=== PATIENT | female | born 1955 | race Caucasian/White ===

== ENCOUNTER 2016-08-23 21:58 | Inpatient (IN) | payer OTHER ==
[~2016-08-23] VITALS: Ht 167.6 cm; Wt 90.7 kg
[2016-08-23] MEDS ORDERED: NACL 0.9% 1,000 ML IV ONE (22:00)
--- NOTE | 2016-08-23 22:00 | NUR ---
PT PAYTON ALS. TAKEN TO BED 3
--- NOTE | 2016-08-23 22:00 | NUR ---
61Y F BIBA FROM HOME C/O SOB AND ALOC. EMS STATES DAUGHTER SAID MOM COULD ONLY RECALL HER NAME AT 2130 SO CALLED EMS, DAUGHTER STATES MOM WAS AA04 THIS MORNING. PT HAS HX CHF, HTN, COPD, AND IS A SMOKER. 20G IN THE LEFT HAND ESTABLISHED BY EMS ON THE FIELD; BS 245; EMS GAVE 5 ROUNDS OF ALBUTEROL AND 0.5 OF ATROVENT ONROUTE. PT STATES DENIES N/V/D; SKIN IS PINK/WARM/DRY WITH EDEMA BILAT LEGS; HR IS TACHY 119 AT THE MOMENT. PT DENIES ANY FEVER, CP, OR COUGH AT THIS TIME; PATIENT STATES PAIN OF 0/10 AT THIS TIME; VSS; PATIENT POSITIONED FOR COMFORT; HOB ELEVATED; BEDRAILS UP X2; BED DOWN. ER MD MADE AWARE OF PT STATUS.
--- NOTE | 2016-08-23 22:04 | NUR ---
Dr. Mckenzie evaluating patient at bedside.
[2016-08-23] MEDS ORDERED: NITROGLYCERIN 2% 1 GM PKT TP ONE (22:10)
[2016-08-23] MEDS ORDERED: methylPREDNISolone SS 125 MG in WATER STERILE 2 ML IV ONE (22:10)
[2016-08-23] MEDS ORDERED: ALBUTEROL SULFATE/IPRATROPIU 3 ML SOL IH ONE (22:10)
[2016-08-23] MEDS ORDERED: FUROSEMIDE 40 MG/4 ML VIAL IVP ONE (22:10)
[2016-08-23 22:11] VITALS: BP 126/70
--- NOTE | 2016-08-23 22:22 | NUR ---
Respiratory Therapist at bedside for respiratory intervention.
[2016-08-23 22:30] LABS: BASOPHILS # (AUTO) 0.1 K/uL (0.00-0.22); BASOPHILS % (AUTO) 1.8 % (0.0-2.0); EOSINOPHILS # (AUTO) 0.1 K/uL (0-0.4); EOSINOPHILS % (AUTO) 2.3 % (0.0-4.0); HEMATOCRIT 46.7 % (36-48); LYMPHOCYTES # (AUTO) 0.8 K/uL (2.5-16.5); LYMPHOCYTES % (AUTO) 14.8 % (20.5-51.1); MEAN CORPUSCULAR HEMOGLOBIN 26 pg (27-31); MEAN CORPUSCULAR HGB CONC 30 g/dL (33-37); MEAN CORPUSCULAR VOLUME 86 fL (80-94); MONOCYTES # (AUTO) 0.5 K/uL (0.8-1.0); MONOCYTES % (AUTO) 9.9 % (1.7-9.3); NEUTROPHILS # (AUTO) 3.9 K/uL (1.8-7.7); NEUTROPHILS % (AUTO) 71.2 % (42.2-75.2); PLATELET COUNT (AUTO) 174 K/uL (140-450); RED BLOOD CELL COUNT(AUTO) 5.42 MIL/uL (4.20-5.40); WHITE BLOOD COUNT (AUTO) 5.5 K/uL (4.8-10.8)
[2016-08-23 22:47] LABS: ANION GAP 7.1 (8-16); CALCIUM 8.6 mg/dL (8.5-10.1); POTASSIUM 4.1 mmol/L (3.5-5.1)
[2016-08-23 22:52] LABS: ALBUMIN 3.1 g/dL (3.4-5.0); INR 1.2 (0.8-1.2); PARTIAL THROMBOPLASTIN TIME 27.1 secs (22-35.6); PROTHROMBIN TIME 11.9 secs (10.8-13.4); TOTAL BILIRUBIN 0.3 mg/dL (0.0-1.0); TOTAL PROTEIN, SERUM 6.6 g/dL (6.4-8.2)
[2016-08-23 22:55] LABS: LACTIC ACID 1.1 mmol/L (0.4-2.0)
--- NOTE | 2016-08-23 22:56 | NUR ---
X-Ray at bedside.
[2016-08-23] MEDS ORDERED: hydrALAZINE 20 MG/ML VIAL IVP ONE (23:05)
--- NOTE | 2016-08-23 23:21 | NUR ---
PLACE PT ON BIPAP PER DR BARRETO, 01/01, B/UP RATE 14, FIO2 40% , PT TOLERATING WELL. PT IS ALOC AND HAVE TO BE REMINDED PT NOT TO REMOVE MASK.
--- NOTE | 2016-08-24 00:10 | NUR ---
Pt report given to LENA COOPER . Transfer of care at this time.
--- NOTE | 2016-08-24 00:10 | NUR ---
Patient will be admitted to care of DR DUMONT. Admited to TELE 107B. Will go to room 107B . Belongings list completed. Report to LENA COOPER .
[2016-08-24 00:17] LABS: BILIRUBIN,URINE NEGATIVE (NEGATIVE); BLOOD, URINE TRACE-L (NEGATIVE); LEUKOCYTE ESTERASE ,URINE NEGATIVE (NEGATIVE); NITRITE, URINE NEGATIVE (NEGATIVE); PH,URINE 5.5 (5.0-9.0); PROTEIN,URINE NEGATIVE (NEGATIVE); UGLUCOSE NEGATIVE (NEGATIVE); UROBILINOGEN,URINE 0.2 EU/dL (0.2 - 1)
[2016-08-24 00:27] LABS: APPEARANCE,URINE CLEAR (CLEAR); COLOR,URINE STRAW (YELLOW)
[2016-08-24 00:29] LABS: BACTERIA,URINE OCCASSIONAL /HPF (None Seen); RBC,URINE 3-10 (FEW) /HPF (0-5); SQUAMOUS EPITHELIAL CELL,UR 4-10 (MOD) /LPF (0-3 (FEW)); WBC,URINE 0-5 (RARE) /HPF (0-5)
[2016-08-24 00:35] LABS: AMPHETAMINE, URINE NEG. ng/ml (NEG <=1000); BARBITURATE, URINE NEG. ng/ml (NEG <=200); BENZODIAZEPINE, URINE NEG. ng/mL (NEG <=200); CANNABINOID, URINE NEG. ng/mL (NEG <=50); COCAINE, URINE NEG. ng/mL (NEG <=300); OPIATE, URINE NEG. ng/mL (NEG <=2000); PHENCYCLIDINE SCREEN,URINE NEG. ng/mL (NEG <=25)
--- NOTE | 2016-08-24 00:35 | NUR ---
RESPIRATORY CALLED FROM ED, APPLIED NON REBREATHER MASK ON PATIENT AND PATIENT SATING AT 99-100%, ASKED IF I COULD CALL MD TO ASK IF IT WAS OKAY TO TAKE PATIENT OFF BIPAP AND APPLY NONREBREATHER BEFORE TRANSFERRING TO UNIT. CALLED DR DUMONT, HE STATED THAT WAS OKAY AND CONTINUE TO DO WHAT THE PATIENT NEEDS. WILL AWAIT FOR PATIENT TO ARRIVE TO UNIT
[2016-08-24 01:30] VITALS: BP 112/84
--- NOTE | 2016-08-24 01:30 | NUR ---
PATIENT ARRIVED TO UNIT FROM ED VIA GURNEY ACCOMPANIED BY DAUGHTER AT BEDSIDE, PATIENT IS LETHARGIC AND ABLE TO RESPOND TO QUESTIONS NODDING HEAD YES OR NO. PATIENT IS ON NON REBREATHER MASK, RESPIRATIONS LABORED, O2 SATS AT 99%, LUNGS AUSCULTATED, WHEEZING PRESENT, IV TO LEFT HAND PATENT AND INTACT, SKIN IS INTACT WITH OLD SCARS TO LEFT FOOT FROM HISTORY OF SURGERY. BILATERAL LOWER EXTREMITY EDEMA NOTED, NON PITTING WITH REDNESS AND DRY SKIN. SKIN FEELS COOL TO THE TOUCH. PATIENT ARRIVED TO UNIT WITH BED SHEETS SATURATED OF URINE, PATIENT IS INCONTINENT AND ACKNOWLEDGED IT IS NOW ONSET. DISCUSSED PATIENTS PLAN OF CARE WITH DAUGHTER, DAUGHTER VERBALIZED UNDERSTANDING. PATIENT CONNECTED TO TELE MONITOR, SAFETY MEASURES CHECKED, CALL LIGHT WITHIN REACH, WILL CONTINUE TO CLOSELY MONITOR. VITAL SIGNS STABLE.
[2016-08-24] MEDS ORDERED: ONDANSETRON 4 MG/2 ML VIAL IVP PRN (01:40)
[2016-08-24] MEDS ORDERED: ACETAMINOPHEN 325 MG TAB PO PRN (01:40)
[2016-08-24] MEDS ORDERED: ALBUTEROL SULFATE/IPRATROPIU 3 ML SOL IH PRN (01:40)
[2016-08-24] MEDS: NACL 0.9% 1,000 ML IV SCH ×2 (02:19→22:59)
[2016-08-24 03:11] LABS: CHOL/HDL RATIO 3.4 (1-4.5)
[2016-08-24 03:18] LABS: FREE T4 (FREE THYROXINE) 1.08 ng/dL (0.76-1.46); THYROID STIMULATING HORMONE 0.87 uIU/mL (0.34-3.76)
[2016-08-24] MEDS: LEVOFLOXACIN 500 MG/D5W PREMIX 100 ML IV SCH (03:33)
[2016-08-24 04:00] VITALS: BP 135/60
--- NOTE | 2016-08-24 04:23 | NUR ---
VITAL SIGNS STABLE, PATIENT WOKE UP WHEN I TOOK VITALS, PATIENT ABLE TO NOD HEAD YES OR NO TO QUESTIONS. PATIENT ACKNOWLEDGED SHE IS OKAY, NO PAIN, COMFORTABLE AND JUST TIRED. PATIENT FELL BACK TO SLEEP, CALL LIGHT WITHIN REACH. WILL CONTINUE TO MONITOR.
[2016-08-24] MEDS: ALBUTEROL SULFATE/IPRATROPIU 3 ML SOL IH SCH ×6 (04:40→23:45)
[2016-08-24 05:02] LABS: BLOOD GAS PCO2 88.1 mmHg (20-50); BLOOD GAS PO2 284.5 mmHg
[2016-08-24] MEDS: methylPREDNISolone SS 125 MG/2 ML VIAL IVP SCH ×3 (05:02→20:45)
[2016-08-24 05:03] LABS: BLOOD GAS BASE EXCESS 5.2 mmol/L (-2.0-2.0); BLOOD GAS HCO3 36.1 mmol/L; BLOOD GAS O2 SAT% 99.5 % (92.0-98.5)
--- NOTE | 2016-08-24 05:30 | NUR ---
PER RESPIRATORY, PATIENT'S BLOOD GAS VALUES CAME BACK, CRITICAL VALUES OF PH 7.230 AND PCO2 [address]1. NOT[address] DR DUMONT AND LET MD KNOW RESPIRATORY PUT PATIENT BACK ON BI PAP, STATED, "OKAY THANK YOU". NO ORDERS RECEIVED, PATIENT SATING AT 92%. WILL CONTINUE TO CLOSELY MONITOR.
--- NOTE | 2016-08-24 07:02 | NUR ---
PATIENT HAS BEEN SCREENED AND CATEGORIZED HIGH NUTRITION RISK. PATIENT WILL BE SEEN WITHIN 1-2 DAYS OF ADMISSION. 08/24/16-08/25/16 SHANELLE HOLBROOK MS, RDN
[2016-08-24] MEDS: BUDESONIDE 0.25 MG/2 ML NEBU INH SCH ×2 (07:16→19:47)
--- NOTE | 2016-08-24 07:30 | NUR ---
RECEIVED PT IN BED. ASLEEP. AROUSABLE TO VOICE. NO SIGNS AND SYMPTOMS OF ACUTE PAIN OR DISCOMFORT NOTED. BREATHING EVEN ON BIPAP. POSITIVE BOWEL SOUNDS NOTED UPON AUSCULTATION NOTED. PT ON BEDREST. POSITIVE EDEMA ON BILATERAL LOWER EXTREMETY NOTED. SAFETY PRECAUTION IN PLACE. CALL LIGHT WITHIN REACH.
--- NOTE | 2016-08-24 07:32 | NUR ---
ENDORSED PATIENT FOR CONTINUITY OF CARE TO DAY RN, PATIENT IN STABLE CONDITION
[2016-08-24 08:00] VITALS: BP 134/58
[2016-08-24] MEDS: LISINOPRIL 10 MG TAB PO SCH (09:00)
[2016-08-24] MEDS: ATORVASTATIN 20 MG TAB PO SCH (09:00)
[2016-08-24] MEDS: ASPIRIN 81 MG TAB.CHEW PO SCH (09:00)
[2016-08-24] MEDS: LACTOBACILLUS RHAMNOSUS GG 1 EACH CAP PO SCH (09:00)
[2016-08-24] MEDS: METOPROLOL SUCCINATE 50 MG TABER PO SCH (09:00)
--- NOTE | 2016-08-24 09:20 | NUR ---
DR. DUMONT, ON ROUNDS, ASSESSED PT. PT ON BIPAP. NOT RESPONSIVE TO AUDITORY STIMULI. ORDERED PT TO BE NPO UNTIL SEEN BY PULMONARY. Addendum: 08/24/16 at 0925 by Luanne Ireland RN PT ON 97% BIPAP. RESPIRATIONS 22 BPM.
--- NOTE | 2016-08-24 09:39 | NUR ---
PT TRIED TO GET OUT OF BED. VERBALIZED SHE NEEDS TO GO TO THE BATHROOM. OFFERED BED KELLEY. PT ABLE TO VOID ON BED KELLEY APPROXIMATELY 400ML OF CLEAR YELLOW URINE. PT ALERT ORIENTEDX2. REORIENTED PT. PT WANTS THE BIPAP OUT. CALLED RT MADE AWARE. PT HOOKED TO OXYMIZER AT 6LPM, SATING ON 91-92%. INSTRUCTED PT NPO UNTIL SEEN BY PULMONARY. WILL MAKE DR. DUMONT AWARE OF PT STATUS.
[2016-08-24] MEDS: FUROSEMIDE 40 MG/4 ML VIAL IVP SCH (10:16)
--- NOTE | 2016-08-24 11:11 | NUR ---
08/24/16 RD INITIAL ASSESSMENT COMPLETED PLEASE REFER TO NUTRITION ASSESSMENT UNDER CARE ACTIVITY FOR ESTIMATED NUTRITIONAL NEEDS. RD RECOMMENDATIONS: 1. CONTINUE ON CURRENT DIET TOLERATED. 2. RDN TO PROVIDE DIABETIC HEALTH SHAKE WITH BREAKFAST AND LUNCH TO HELP MEET NEEDS PT NOTED TO HAVE POOR APPETITE. 3. RD WILL F/U 3-5 DAYS; MODERATE RISK. SHANELLE HOLBROOK, , RDN
[2016-08-24 12:00] VITALS: BP 125/55
--- NOTE | 2016-08-24 12:00 | NUR ---
PT IS MORE ALERT AND AWAKE, ORIENTEDX2-3, DAUGHTER AT THE BEDSIDE. PT VERBALIZED SHE WANTS TO EAT LUNCH, DR. ANDERSON MADE AWARE AND IS AT THE BEDSIDE. LUNCH SERVED. WILL CONTINUE TO MONITOR.
[2016-08-24] MEDS: BLOOD GLUCOSE MONITORING 1 DEV DEV FS SCH ×3 (12:25→20:44)
[2016-08-24] MEDS: CLINDAMYCIN 600 MG in DEXTROSE 5% 50 ML IV SCH ×3 (13:06→23:59)
[2016-08-24] MEDS: INSULIN LISPRO SLIDING SCALE 100 UNITS/ML VIAL SUBQ PRN ×3 (13:07→20:51)
[2016-08-24 16:00] VITALS: BP 130/52
--- NOTE | 2016-08-24 19:15 | NUR ---
PT IN BED AWAKE. NO SOB NOTED. NO COMPLAINTS OF PAIN OR DISCOMFORT AT THIS TIME. WILL ENDORSE TO NEXT SHIFT NURSE FOR CONTINUITY OF CARE.
--- NOTE | 2016-08-24 19:28 | NUR ---
RECEIVED REPORT FROM ALLISON SEVERINO, AT BEDSIDE. INITIAL ASSESSMENT AND BODY CHECK DONE. PATIENT IS AA TO SELF/PLACE/PERSON WITH EPISODE OF FORGETFUL, BUT ABLE TO FOLLOW COMMAND AND MAKE NEEDS KNOWN AND ON BEDREST. PATIENT CURRENTLY SITING UP ON THE BED AND TALKING TO HER DAUGHTER. NO S/S OF DISTRESS OR SOB NOTED. SKIN WARM/DRY TO TOUCH AND INTACT WITH BLE EDEMA/REDNESS. PATIENT C/O BLE PAIN AT THIS TIME. DISCUSSED PLAN OF CARE, PAIN MANAGEMENT AND MEDICATION REGIMEN WITH PATIENT/DAUGHTER AND BOTH VERBALIZED UNDERSTANDING. PLACED PATIENT ON SAFETY/FALL/ASPIRATION/PRESSURE ULCER PRECAUTIONS AND WILL CONTINUE TO MONITOR. CALL LIGHT LEFT WITHIN REACH.
[2016-08-24 20:00] VITALS: BP 142/71
[2016-08-24] MEDS: MORPHINE SULFATE 2 MG/ML SYR IVP PRN (20:47)
--- NOTE | 2016-08-24 21:45 | NUR ---
ADMINISTERED SOLU-MEDROL AND PAIN MEDICATIONS MD'S ORDERED WITH EDUCATION GIVEN. PATIENT COMPLYING WITH MEDICATIONS AND TOLERATED WELL. MAINTAINED PROPER BODY ALIGNMENT AND KEPT PATIENT WARM. WILL CONTINUE TO MONITOR.
[2016-08-25] VITALS: BP 135/60
[2016-08-25] MEDS: MORPHINE SULFATE 2 MG/ML SYR IVP PRN ×2 (00:03→04:18)
--- NOTE | 2016-08-25 00:47 | NUR ---
PATIENT STILL C/O BLE PAIN, 10/26. ADMINISTERED PRN PAIN MEDICATION AND ASSISTED TO REPOSITION/OFFLOADED PRESSURE AREAS. PATIENT TOLERATED WELL, VSS AND ALL NEEDS ARE ATTENDED. WILL CONTINUE TO MONITOR.
[2016-08-25] MEDS: LEVOFLOXACIN 500 MG/D5W PREMIX 100 ML IV SCH (03:07)
[2016-08-25] MEDS: ALBUTEROL SULFATE/IPRATROPIU 3 ML SOL IH SCH ×6 (03:59→23:22)
[2016-08-25 04:00] VITALS: BP 133/62
--- NOTE | 2016-08-25 04:10 | NUR ---
ASSISTED PATIENT TO USE THE BEDPAN WITH AM CARE/XOCHITL-CARE GIVEN AND REPOSITION FOR COMFORT. PATIENT TOLERATED WELL. THEN GAVE PAIN MEDICATION FOR C/O BLE PAIN, 10/26. WILL CONTINUE TO MONITOR FOR EFFECTIVENESS.
[2016-08-25] MEDS: methylPREDNISolone SS 40 MG/ML VIAL IVP SCH ×3 (04:17→20:51)
[2016-08-25] MEDS: CLINDAMYCIN 600 MG in DEXTROSE 5% 50 ML IV SCH (05:07)
[2016-08-25] MEDS: BLOOD GLUCOSE MONITORING 1 DEV DEV FS SCH ×4 (05:53→20:49)
[2016-08-25] MEDS: INSULIN LISPRO SLIDING SCALE 100 UNITS/ML VIAL SUBQ PRN ×4 (05:54→20:56)
[2016-08-25 06:24] LABS: BASOPHILS % (AUTO) 0.2 % (0.0-2.0); EOSINOPHILS # (AUTO) 0.1 K/uL (0-0.4); HEMATOCRIT 39.9 % (36-48); HEMOGLOBIN 12.4 g/dL (12.0-16.0); LYMPHOCYTES # (AUTO) 0.3 K/uL (2.5-16.5); LYMPHOCYTES % (AUTO) 3.5 % (20.5-51.1); MEAN CORPUSCULAR HEMOGLOBIN 26 pg (27-31); MEAN CORPUSCULAR HGB CONC 31 g/dL (33-37); MEAN CORPUSCULAR VOLUME 84 fL (80-94); MONOCYTES # (AUTO) 0.4 K/uL (0.8-1.0); MONOCYTES % (AUTO) 4.8 % (1.7-9.3); NEUTROPHILS % (AUTO) 90.5 % (42.2-75.2); PLATELET COUNT (AUTO) 179 K/uL (140-450); RED BLOOD CELL COUNT(AUTO) 4.74 MIL/uL (4.20-5.40); RED CELL DISTRIBUTION WIDTH 16.6 % (11.6-13.7); WHITE BLOOD COUNT (AUTO) 7.8 K/uL (4.8-10.8)
[2016-08-25 06:54] LABS: ALBUMIN 2.5 g/dL (3.4-5.0); MAGNESIUM 1.7 mg/dL (1.8-2.4); POTASSIUM 3.7 mmol/L (3.5-5.1)
[2016-08-25 07:16] LABS: ANION GAP 4.5 (8-16); CALCIUM 8.1 mg/dL (8.5-10.1); CARBON DIOXIDE 36.2 mmol/L (21-32); CREATININE 0.9 mg/dL (0.6-1.3)
[2016-08-25 07:17] LABS: PHOSPHORUS 3.5 mg/dL (2.5-4.9); TOTAL BILIRUBIN 0.2 mg/dL (0.0-1.0); TOTAL PROTEIN, SERUM 5.5 g/dL (6.4-8.2)
[2016-08-25] MEDS: BUDESONIDE 0.25 MG/2 ML NEBU INH SCH ×2 (07:25→19:32)
--- NOTE | 2016-08-25 07:30 | NUR ---
RECEIVED PT IN BED ASLEEP, AROUSABLE TO VOICE. ON OXYMIZER AT 6LPM. NO SOB NOTED AT THIS TIME. PT DENIES ANY PAIN OR DISCOMFORT AT THIS TIME. POSITIVE BOWEL SOUNDS NOTED ON FOUR QUADRANTS. PT ON BEDREST. OFFERED BED KELLEY NEEDED. BILATERAL EDEMA NOTED ON LEGS. SKIN INTACT. ELEVATED LEGS ON PILLOW. SAFETY PRECAUTION IN PLACE. CALL LIGHT WITHIN REACH.
--- NOTE | 2016-08-25 07:39 | NUR ---
ENDORSED PLAN OF CARE TO ALLISON IGNACIO, AT BEDSIDE. PATIENT RESTED WELL AND REMAINED IN STABLE CONDITION WITHOUT S/S OF DISTRESS NOTED.
[2016-08-25 08:00] VITALS: BP 127/66
[2016-08-25] MEDS ORDERED: MAGNESIUM OXIDE 400 MG TAB PO SCH (08:40)
[2016-08-25 09:06] LABS: T4 (THYROXINE) 6.7 ug/dL (4.5-12.0)
[2016-08-25] MEDS: LISINOPRIL 10 MG TAB PO SCH (10:14)
[2016-08-25] MEDS: ASPIRIN 81 MG TAB.CHEW PO SCH (10:15)
[2016-08-25] MEDS: ATORVASTATIN 20 MG TAB PO SCH (10:16)
[2016-08-25] MEDS: FUROSEMIDE 40 MG/4 ML VIAL IVP SCH (10:16)
[2016-08-25] MEDS: LACTOBACILLUS RHAMNOSUS GG 1 EACH CAP PO SCH (10:17)
[2016-08-25] MEDS: METOPROLOL SUCCINATE 50 MG TABER PO SCH (10:17)
[2016-08-25 12:00] VITALS: BP 124/63
[2016-08-25 16:00] VITALS: BP 147/63
[2016-08-25] MEDS: NACL 0.9% 1,000 ML IV SCH (18:32)
--- NOTE | 2016-08-25 19:20 | NUR ---
PT ALERT AWAKE, DAUGHTER AT BEDSIDE. DENIES ANY PAIN OR DISCOMFORT. KEPT CLEAN. DRY AND COMFORTABLE, NEEDS ATTENDED. ENDORSED TO NEXT SHIFT ON STABLE CONDITION.
--- NOTE | 2016-08-25 19:28 | NUR ---
RECEIVED REPORT FROM MERE/ALLISON WALTERS, AT BEDSIDE. INITIAL ASSESSMENT AND BODY CHECK DONE. PATIENT IS AAO X 3-4 WITH EPISODE OF FORGETFULNESS, BUT ABLE TO FOLLOW COMMAND AND MAKE NEEDS KNOWN AND ON BEDREST. PATIENT CURRENTLY SITING UP ON THE BED. VSS. NO S/S OF DISTRESS OR SOB NOTED. SKIN WARM/DRY TO TOUCH WITH NORMAL COLOR AND INTACT WITH BLE EDEMA/REDNESS. PATIENT STILL C/O BLE PAIN AT THIS TIME. DISCUSSED PLAN OF CARE, PAIN MANAGEMENT AND MEDICATION REGIMEN WITH PATIENT/DAUGHTER AND BOTH VERBALIZED UNDERSTANDING. PLACED PATIENT ON SAFETY/FALL/PRESSURE ULCER PRECAUTIONS AND WILL CONTINUE TO MONITOR. CALL LIGHT LEFT WITHIN REACH.
[2016-08-25 20:00] VITALS: BP 135/62
[2016-08-25] MEDS: HYDROcodone/APAP 5/325 MG 1 TAB TAB PO PRN (20:51)
--- NOTE | 2016-08-25 21:30 | NUR ---
PATIENT C/O PAIN OVER THE IV SITE, LT HAND. D/C IV LINE AND INSERTED THE NEW ONE ON RT HAND G # 24. THEN, ADMINISTERED DUE AND PAIN MEDICATIONS MD'S ORDERED WITH EDUCATION GIVEN. PATIENT TOLERATED WELL. MAINTAINED PROPER BODY ALIGNMENT AND KEPT PATIENT WARM. ALL NEEDS ARE ATTENDED. WILL CONTINUE TO MONITOR.
--- NOTE | 2016-08-25 22:25 | NUR ---
ROUNDS MADE, SEEN PATIENT WATCHING TV COMFORTABLY IN BED AND STATED WITH SOME PAIN RELIEF AFTER POST-MEDICATION. NO CHANGE IN CONDITION NOTED. WILL CONTINUE TO MONITOR.
[2016-08-26] VITALS: BP 134/63
--- NOTE | 2016-08-26 01:09 | NUR ---
PATIENT IS CLINICALLY STABLE WITH UNCHANGED V/S. WILL CONTINUE TO MONITOR.
[2016-08-26] MEDS: NACL 0.9% 1,000 ML IV SCH ×2 (01:20→22:42)
[2016-08-26] MEDS: LEVOFLOXACIN 500 MG/D5W PREMIX 100 ML IV SCH (02:21)
[2016-08-26] MEDS: ALBUTEROL SULFATE/IPRATROPIU 3 ML SOL IH SCH ×6 (03:59→23:24)
[2016-08-26 04:00] VITALS: BP 137/63
--- NOTE | 2016-08-26 04:00 | NUR ---
ASSISTED PATIENT TO USE THE BEDPAN WITH XOCHITL-CARE GIVEN/LINENS CHANGED. PATIENT TOLERATED WELL. VSS AND NO ANY COMPLAINT MADE. WILL CONTINUE TO MONITOR.
[2016-08-26 05:39] LABS: HEMOGLOBIN 13.7 g/dL (12.0-16.0); MEAN CORPUSCULAR HEMOGLOBIN 27 pg (27-31); MEAN CORPUSCULAR HGB CONC 31 g/dL (33-37); MEAN CORPUSCULAR VOLUME 86 fL (80-94); PLATELET COUNT (AUTO) 189 K/uL (140-450); RED BLOOD CELL COUNT(AUTO) 5.13 MIL/uL (4.20-5.40); WHITE BLOOD COUNT (AUTO) 10.5 K/uL (4.8-10.8)
[2016-08-26] MEDS: BLOOD GLUCOSE MONITORING 1 DEV DEV FS SCH ×4 (05:55→21:14)
[2016-08-26] MEDS: INSULIN LISPRO SLIDING SCALE 100 UNITS/ML VIAL SUBQ PRN ×3 (05:56→21:29)
[2016-08-26 06:07] LABS: CALCIUM 8.4 mg/dL (8.5-10.1); CREATININE 0.9 mg/dL (0.6-1.3)
[2016-08-26 06:15] LABS: CARBON DIOXIDE 36.7 mmol/L (21-32); POTASSIUM 4.5 mmol/L (3.5-5.1)
[2016-08-26 06:24] LABS: ANION GAP 5.8 (8-16)
[2016-08-26 06:26] LABS: MAGNESIUM 2.1 mg/dL (1.8-2.4)
[2016-08-26] MEDS: BUDESONIDE 0.25 MG/2 ML NEBU INH SCH ×2 (07:04→19:15)
--- NOTE | 2016-08-26 07:04 | NUR ---
ASLEEP EASILY AWAKENS TOLERATING SUPPLEMENATL OXYGEN AT 6 PLM VIA OXYMIZER HHN THERAPY GIVEN ORDERED TOLERATED WELL WITHOUT INCIDENT BIPAP VISION AT BEDSIDE
--- NOTE | 2016-08-26 07:30 | NUR ---
ENDORSED PLAN OF CARE TO ALLISON GONZALEZ, AT BEDSIDE. PATIENT RESTED WELL THROUGHOUT THE SHIFT AND REMAINED IN STABLE CONDITION.
[2016-08-26 08:00] VITALS: BP 125/64
--- NOTE | 2016-08-26 08:04 | NUR ---
RECEIVED REPORT FROM LISA Reyes RN. PT IS ON OXIMIZER AT 6L/MIN. PT IS AAOX2, CONFUSION NOTED. IV TO RIGHT HAND #24 PATENT AND INTACT. SKIN IS INTACT. SAFETY PRECAUTIONS IN PLACE WITH BED IN LOWEST POSITION AND SIDE RAILS UP X2. CALL LIGHT WITHIN REACH. WILL CONTINUE TO MONITOR.
[2016-08-26 08:30] LABS: BAND % (MANUAL) 7 % (0-8); EOSINOPHILS % (MANUAL) 1 % (0-4); LYMPHOCYTES % (MANUAL) 4 % (20-46); MONOCYTES % (MANUAL) 2 % (5-12); NEUTROPHILS % (MANUAL) 86 (43-65)
[2016-08-26 08:31] LABS: PLATELET ESTIMATE ADEQUATE
[2016-08-26 08:42] LABS: BLOOD GAS BASE EXCESS 7.5 mmol/L (-2.0-2.0); BLOOD GAS HCO3 37.9 mmol/L; BLOOD GAS O2 SAT% 97.1 % (92.0-98.5); BLOOD GAS PCO2 84.9 mmHg (20-50); BLOOD GAS PH 7.268 (7.35-7.45); BLOOD GAS PO2 99.7 mmHg
--- NOTE | 2016-08-26 08:50 | NUR ---
RADIO INSTALLER AT BEDSIDE FOR AIDE PATIENT WITH BREAKFAST TRAY SATURATION 97% ONSUPPLEMENATL OXYGEN AT 6 LPM VIA OXYMIZER Addendum: 08/26/16 at 0901 by Juan Ramon Bell RT AWAKE AND ALERT NO APPARENT SOB NOTED
--- NOTE | 2016-08-26 09:12 | NUR ---
LOADER OPERATOR REMAINS AT BEDSIDE FOR PATIENT FEEDING AWAKE AND ALERT RESPONSIVE NO SOB NOTED SWEEPING COMPOUND BLENDER TO ATTEMPT BIPAP TO MASK AT A LATER TIME CONTINUANCE OF SUPPLEMENTAL OXYGEN AT 6 LPM VIA OXYMIZER ABG RESULTS AT 08:40AM PH 7.268 PCO2 84.9 PO2 99.7 BE 7.5 SATURATION 97.1%
--- NOTE | 2016-08-26 09:18 | NUR ---
WITH BIPAP USE PATIENT C/O "TO MUCH PRESSURE" DECREASED IPAP TO 12 cmH20 CREDIT MANAGER TO NOTIFY DR. JALLOH
[2016-08-26] MEDS: FUROSEMIDE 40 MG/4 ML VIAL IVP SCH (09:52)
[2016-08-26] MEDS: ASPIRIN 81 MG TAB.CHEW PO SCH (09:53)
[2016-08-26] MEDS: LISINOPRIL 10 MG TAB PO SCH (09:53)
[2016-08-26] MEDS: LACTOBACILLUS RHAMNOSUS GG 1 EACH CAP PO SCH (09:53)
[2016-08-26] MEDS: ATORVASTATIN 20 MG TAB PO SCH (09:53)
[2016-08-26] MEDS: METOPROLOL SUCCINATE 50 MG TABER PO SCH (09:54)
--- NOTE | 2016-08-26 10:00 | NUR ---
PT TOLERATED MEDS WELL.
--- NOTE | 2016-08-26 10:05 | NUR ---
REVIEWED ABG RESULTS WITH DR. AKUA JALLOH NOTIFIED MD ALSO OF PATIENT C/O OF BIPAP USE WITH "TO MUCH PRESSURE" DECREASED IPAP TO 12 cmH20 FROM [address] AKUA JALLOH
--- NOTE | 2016-08-26 10:13 | NUR ---
PER OXYGEN ORDER 88%-92% DR. AKUA BRUNNERASE FIO2 ON BIPAP TO 35%
--- NOTE | 2016-08-26 10:15 | NUR ---
DR. MCGRATH IN TO SEE PT. WILL FOLLOW UP ON ORDERS.
[2016-08-26 11:54] LABS: BLOOD GAS BASE EXCESS 8.7 mmol/L (-2.0-2.0); BLOOD GAS HCO3 37.2 mmol/L; BLOOD GAS O2 SAT% 91.3 % (92.0-98.5); BLOOD GAS PO2 64.6 mmHg
--- NOTE | 2016-08-26 11:58 | NUR ---
DR. AKUA JALLOH NOT AVAILABLE REVIEWED ABG REPORT WITH DR. LEYLA BLACKMAN OK TO INCREASE FIO2 TO 40%
[2016-08-26 12:00] VITALS: BP 125/59
--- NOTE | 2016-08-26 12:03 | NUR ---
INCREASE FIO2 ON BIPAP TO 40% PER REVIEW OF ABG REPORT WITH DR. LEYLA BLACKMAN CNA'S AT BEDSIDE FOR PATIENT PHYSICAL HYGIENE AND REPOSITION LEADLIGHTER TO ATTEMPT HHN THERAPY AT A LATER TIME
--- NOTE | 2016-08-26 13:45 | NUR ---
PT NON-COMPLIANT WITH BIPAP AND REMOVED IT. O2 SAT: 78%. RE-CONNECTED BIPAP MAP, O2 SAT: 92%. PROVIDED EDUCATION ON IMPORTANCE OF BIPAP, PT STATED SHE WANTED TO SPEAK TO A MD. NOTIFIED RT AND DR. HUGO. WILL CONTINUE TO MONITOR.
--- NOTE | 2016-08-26 14:27 | NUR ---
CM NOTE PER CERTIFIED PERSONAL TRAINER ANA EXT [phone], SEND REVIEWS TO [facility] FAX# [phone] PH# [phone] AND TO [facility] FAX# [phone] PH# [phone]. SENT INITIAL REVIEW TO [facility] FAX# [phone] PH# [phone] AND TO [facility] FAX# [phone] PH# [phone].
--- NOTE | 2016-08-26 14:57 | NUR ---
SS NOTE: MESSAGE LEFT FOR PT'S RADHIKARKHANH REGARDING PT'S D/C PLAN AND TO OBTAIN MORE INFORMATION REGARDING PT'S PREVIOUS HOSPICE ADMISSION
[2016-08-26 16:00] VITALS: BP 145/67
--- NOTE | 2016-08-26 16:20 | NUR ---
PT C/O DISCOMFORT WITH BIPAP. NOTIFIED RT.
--- NOTE | 2016-08-26 16:24 | NUR ---
REMOVED PT FROM BIPAP DUE TO PT COMPLAINING OF DISCOMFORT AND PT CONTINUOUSLY REMOVING BIPAP MASK. PT PLACED ON 4L OXYMIZER , SPO2 94%. PT NOT SOB AND NOT IN RESPIRATORY DISTRESS. NURSE BRENT MARTIN. DEJAN Isaac AWARE.
[2016-08-26 16:34] LABS: HEMOGLOBIN A1C 11.5 % (4.8-5.6)
--- NOTE | 2016-08-26 18:29 | NUR ---
CHECKED ON PT. ALL NEEDS MET AT THIS TIME. CALL LIGHT WITHIN REACH.
[2016-08-26] MEDS: HYDROcodone/APAP 5/325 MG 1 TAB TAB PO PRN (18:49)
--- NOTE | 2016-08-26 19:16 | NUR ---
ENDORSED CARE TO ALLISON MARTIN. PT IN STABLE CONDITION.
--- NOTE | 2016-08-26 19:16 | NUR ---
RCV'D PT ON 6 L OXIMIZER PT SAT IS 95%. HHN TX OF [place] AND PULMICORT GIVEN. PT DOES NOT WANT TO USE BIPAP NOW. EXPLAINED TO PT THAT AT ANYTIME IF SHE FEELS SOB OR IN DISTRESS TO LET THE NURSE KNOW PT VERBALIZED UNDERSTANDING. NO SOB OR DISTRESS NOTED AT THIS TIME. WILL CONTINUE TO MONITOR.
--- NOTE | 2016-08-26 19:30 | NUR ---
ASSUMED CARE OF PATIENT, AWAKE, ALERT AND ORIENTED. NO COMPLAINS. RT AT BEDSIDE FOR BREATHING TREATMENT. CALL LIGHT WITHIN REACH. PLAN OF CARE DISCUSSED WITH PATIENT.
[2016-08-26 20:00] VITALS: BP 133/72
--- NOTE | 2016-08-26 20:00 | NUR ---
VITAL SIGNS STABLE. REPOSITIONED WITH JOURNEYMAN MECHANIC. PERICARE BY JOURNEYMAN MECHANIC.
--- NOTE | 2016-08-26 21:00 | NUR ---
DAUGHTER AT BEDSIDE. UPDATED AND PLAN OF CARE DISCUSSED. CALL LIGHT WITHIN REACH. HS SNACK GIVEN, ASSISTED BY DAUGHTER.
[2016-08-27 00:34] VITALS: BP 139/63
--- NOTE | 2016-08-27 00:39 | NUR ---
NO COMPLAINS. AWAKE NOTED. VITAL SIGNS STABLE. CALL LIGHT WITHIN REACH.
[2016-08-27] MEDS: LEVOFLOXACIN 500 MG/D5W PREMIX 100 ML IV SCH (02:29)
[2016-08-27] MEDS: ALBUTEROL SULFATE/IPRATROPIU 3 ML SOL IH SCH ×6 (03:15→20:03)
[2016-08-27 03:59] VITALS: BP 129/57
--- NOTE | 2016-08-27 04:02 | NUR ---
SLEEPING, EASILY AROUSABLE. REPOSITIONED. NO COMPLAINS. VITAL SIGNS STABLE. CALL LIGHT WITHIN REACH.
[2016-08-27] MEDS: BLOOD GLUCOSE MONITORING 1 DEV DEV FS SCH ×4 (05:16→21:31)
[2016-08-27] MEDS: INSULIN LISPRO SLIDING SCALE 100 UNITS/ML VIAL SUBQ PRN ×3 (06:18→21:31)
[2016-08-27 06:31] LABS: HEMATOCRIT 43.4 % (36-48); HEMOGLOBIN 14.1 g/dL (12.0-16.0); MEAN CORPUSCULAR HEMOGLOBIN 27 pg (27-31); MEAN CORPUSCULAR HGB CONC 32 g/dL (33-37); MEAN CORPUSCULAR VOLUME 84 fL (80-94); PLATELET COUNT (AUTO) 196 K/uL (140-450); RED BLOOD CELL COUNT(AUTO) 5.15 MIL/uL (4.20-5.40)
[2016-08-27 06:50] LABS: ANION GAP 1.5 (8-16); CALCIUM 8.9 mg/dL (8.5-10.1); CREATININE 0.9 mg/dL (0.6-1.3)
[2016-08-27 06:56] LABS: PHOSPHORUS 3.3 mg/dL (2.5-4.9)
[2016-08-27 06:57] LABS: BAND % (MANUAL) 3 % (0-8); LYMPHOCYTES % (MANUAL) 22 % (20-46); MONOCYTES % (MANUAL) 7 % (5-12); NEUTROPHILS % (MANUAL) 68 (43-65)
[2016-08-27] MEDS: BUDESONIDE 0.25 MG/2 ML NEBU INH SCH ×2 (07:22→20:03)
--- NOTE | 2016-08-27 07:22 | NUR ---
PT REFUSED THE PULMICORT TX WANTS TO USE RESTROOM
--- NOTE | 2016-08-27 07:23 | NUR ---
ENDORSED CARE AT BEDSIDE WITH PATIENT WITH REMINGTON RN, PATIENT IN STABLE CONDITION.
[2016-08-27 07:25] LABS: CARBON DIOXIDE 41.5 mmol/L (21-32)
--- NOTE | 2016-08-27 07:30 | NUR ---
RECEIVED REPORT FROM NIGHT NURSE. PT AOX3, RESTING IN BED. PT ON O2 OXIMIZER. CONTINUOUS O2 SAT MONITOR IN PLACE. TITLE DEPARTMENT MANAGER IN PLACE. NO CHEST PAIN, SOB OR ACUTE DISTRESS. BLE EDEMA NOTED. IV ACCESS ASYMPTOMATIC, PATENT AND INTACT, INFUSING WELL. PLAN OF CARE REVIEWED AND DISCUSSED WITH PT, PT VERBALIZES UNDERSTANDING. SAFETY MEASURES ENSURED.
[2016-08-27 08:00] VITALS: BP 146/72
[2016-08-27] MEDS: LACTOBACILLUS RHAMNOSUS GG 1 EACH CAP PO SCH (08:33)
[2016-08-27] MEDS: LISINOPRIL 10 MG TAB PO SCH (08:34)
[2016-08-27] MEDS: ATORVASTATIN 20 MG TAB PO SCH (08:34)
[2016-08-27] MEDS: METOPROLOL SUCCINATE 50 MG TABER PO SCH (08:34)
[2016-08-27] MEDS: HYDROcodone/APAP 5/325 MG 1 TAB TAB PO PRN ×2 (08:37→19:00)
[2016-08-27] MEDS: ASPIRIN 81 MG TAB.CHEW PO SCH (08:38)
[2016-08-27] MEDS: FUROSEMIDE 40 MG/4 ML VIAL IVP SCH (08:38)
--- NOTE | 2016-08-27 08:40 | NUR ---
VS NOTED. MEDICATIONS ADMINISTERED WITH EDUCATION, PT VERBALIZES UNDERSTANDING. PT TOLERATED MEDS WELL. NO S/S OF DISTRESS. SAFETY MEASURES ENSURED.
--- NOTE | 2016-08-27 10:42 | NUR ---
PT REFUSED BREATHING TX NO SIGNS OF DISTRESS NOTED AND ALLISON RODRIGUEZ WAS NOTIFIED
--- NOTE | 2016-08-27 11:56 | NUR ---
SS NOTE: MESSAGE LEFT FOR PT'S DTRKHANH TO FOLLOW UP ON D/C PLANS FOR PT
[2016-08-27 12:00] VITALS: BP 145/76
--- NOTE | 2016-08-27 12:00 | NUR ---
ASSISTED WITH ADLS AND AM CARE, PT TOLERATED WELL. CONDITION STABLE. SAFETY MEASURES ENSURED.
--- NOTE | 2016-08-27 14:00 | NUR ---
SS NOTE: MESSAGE LEFT FOR PT'S DTR, KHANH TO INQUIRE WHETHER SHE WOULD LIKE TO CONTINUE TO USE PT'S PREVIOUS HOSPICE AGENCY OR BE REFERRED TO ANOTHER AGENCY
--- NOTE | 2016-08-27 14:27 | NUR ---
PT REFUSED BREATHING TX NO SIGNS OF DISTRESS NOTED AND ALLISON RODRIGUEZ NOTIFIED
--- NOTE | 2016-08-27 15:24 | NUR ---
SS NOTE: I RECEIVED A CALL FROM PT'S DTR, KHANH AND SHE STATED THAT SHE WOULD LIKE PT TO RETURN TO [facility] ([phone]). I SPOKE WITH NEERAJ FROM [facility] AND SHE STATED THAT SHE WOULD CALL BACK ONCE SHE CHECKS WITH THEIR NURSE TO SEE WHEN HE/SHE CAN COME EVALUATE THE PT. FAXED PT INFORMATION AND PHYSICIAN'S ORDER TO [phone]
--- NOTE | 2016-08-27 15:46 | NUR ---
SS NOTE: I RECEIVED A CALL FROM NEERAJ FROM [facility] ([phone]) AND SHE STATED THAT THEIR NURSE WILL COME TO EVALUATE PT TOMORROW MORNING.
[2016-08-27 16:00] VITALS: BP 144/78
--- NOTE | 2016-08-27 16:00 | NUR ---
VSS. NO S/S DISTRESS.
--- NOTE | 2016-08-27 16:26 | NUR ---
CM NOTE SENT CONCURRENT REVIEW TO [facility] FAX# [phone] PH# [phone] AND TO [facility] FAX# [phone] PH# [phone] CATALINA DOOLEY [phone]
--- NOTE | 2016-08-27 16:27 | NUR ---
FAXED CONCURRENT REVIEW TO [facility] [phone] PHONE [phone] FAXED CONCURRENT REVIEW TO [facility] [phone] PHONE HERMAN [phone]
--- NOTE | 2016-08-27 19:00 | NUR ---
MEDICATED PT WITH NORCO FOR C/O BLE PAIN, SEE PAIN ASSESSMENT.
--- NOTE | 2016-08-27 19:10 | NUR ---
RECEIVED REPORT FROM ALLISON RICO/MICHAEL AT BEDSIDE. PT AAOX3, WITH EPISODES OF CONFUSION AT TIMES. PT HAS BILATERAL LOWER EDEMA. PT INCONTINENT. PT HAS IV TO RIGHT HAND G 24; ASYMPTOMATIC, PATENT AND INTACT INFUSING FLUIDS WELL. PT'S SKIN IS INTACT. ORIENTED PT TO ROOM AND SURROUNDINGS AND USE OF CALL LIGHT. WILL CONTINUE TO MONITOR PT.
--- NOTE | 2016-08-27 19:20 | NUR ---
CONDITION STABLE, ENDORSED PLAN OF CARE TO CITY EDITOR RN.
--- NOTE | 2016-08-27 19:24 | NUR ---
PT REFUSED HHN BECAUSE SHES EATING AND SHE IS WET, NO DISTRESS NOTED.
[2016-08-27 20:00] VITALS: BP 142/65
--- NOTE | 2016-08-27 20:15 | NUR ---
RT AT BEDSIDE. CALL LIGHT WITHIN REACH.
--- NOTE | 2016-08-27 21:32 | NUR ---
PT'S BLOOD GLUCOSE 220. WILL ADMINISTER INSULIN ORDERED.
[2016-08-27] MEDS: NACL 0.9% 1,000 ML IV SCH (23:20)
--- NOTE | 2016-08-27 23:54 | NUR ---
PT TRANSFERRED TO MED SURGE PER MD ORDER. CHARGE NURSE AND CAFETERIA MANAGER AWARE. CALL LIGHT WITHIN REACH.
[2016-08-28] VITALS: BP 138/71
--- NOTE | 2016-08-28 00:25 | NUR ---
PT HAD A BOWEL MOVEMENT. LINEN CHANGED AND PT REPOSITIONED WITH HELP OF NIURKA CASTELLANOS. CALL LIGHT WITHIN REACH.
[2016-08-28] MEDS: ALBUTEROL SULFATE/IPRATROPIU 3 ML SOL IH SCH ×4 (02:14→15:31)
[2016-08-28] MEDS: LEVOFLOXACIN 500 MG/D5W PREMIX 100 ML IV SCH (03:12)
--- NOTE | 2016-08-28 03:14 | NUR ---
0300 LEVAQUIN INFUSING AT THIS TIME. PT STABLE, WILL CONTINUE TO MONITOR PT.
--- NOTE | 2016-08-28 05:25 | NUR ---
PT HAD A MEDIUM SIZED BOWEL MOVEMENT. LINEN CHANGED, PT REPOSITION. WILL CONTINUE TO MONITOR PT.
[2016-08-28] MEDS: BLOOD GLUCOSE MONITORING 1 DEV DEV FS SCH ×3 (06:28→17:20)
[2016-08-28] MEDS: INSULIN LISPRO SLIDING SCALE 100 UNITS/ML VIAL SUBQ PRN ×3 (06:29→17:47)
[2016-08-28] MEDS: BUDESONIDE 0.25 MG/2 ML NEBU INH SCH (06:55)
[2016-08-28 07:05] LABS: BASOPHILS # (AUTO) 0.1 K/uL (0.00-0.22); BASOPHILS % (AUTO) 1.5 % (0.0-2.0); EOSINOPHILS # (AUTO) 0.1 K/uL (0-0.4); EOSINOPHILS % (AUTO) 2.3 % (0.0-4.0); HEMATOCRIT 43.8 % (36-48); HEMOGLOBIN 13.7 g/dL (12.0-16.0); LYMPHOCYTES # (AUTO) 1.3 K/uL (2.5-16.5); MEAN CORPUSCULAR HEMOGLOBIN 26 pg (27-31); MEAN CORPUSCULAR HGB CONC 31 g/dL (33-37); MEAN CORPUSCULAR VOLUME 84 fL (80-94); MONOCYTES # (AUTO) 0.5 K/uL (0.8-1.0); NEUTROPHILS # (AUTO) 1.7 K/uL (1.8-7.7); NEUTROPHILS % (AUTO) 47.2 % (42.2-75.2); PLATELET COUNT (AUTO) 177 K/uL (140-450); RED CELL DISTRIBUTION WIDTH 16.7 % (11.6-13.7); WHITE BLOOD COUNT (AUTO) 3.7 K/uL (4.8-10.8)
--- NOTE | 2016-08-28 07:10 | NUR ---
ENDORSED PLAN OF CARE TO ALLISON PELAYO. PT IN STABLE CONDITION.
--- NOTE | 2016-08-28 07:30 | NUR ---
RECEIVED PT FRM NOC. IV PATENT, NO DISTRESS. ABLE TO ANSWER QUYESTIONS, KNOWS NAME.
[2016-08-28 07:44] LABS: ANION GAP 3.8 (8-16); CALCIUM 8.6 mg/dL (8.5-10.1); CREATININE 0.7 mg/dL (0.6-1.3); POTASSIUM 3.9 mmol/L (3.5-5.1)
[2016-08-28 08:00] VITALS: BP 127/71
[2016-08-28 08:17] LABS: CARBON DIOXIDE 40.1 mmol/L (21-32)
--- NOTE | 2016-08-28 09:00 | NUR ---
MADE ROUNDS PT IS ASLEEP AROUSABLE. ASIISTED TO EAT. ALERT ORIENTED. ON OXYMIZER SATING AT 97%
[2016-08-28] MEDS: ATORVASTATIN 20 MG TAB PO SCH (09:38)
[2016-08-28] MEDS: HYDROcodone/APAP 5/325 MG 1 TAB TAB PO PRN (09:38)
[2016-08-28] MEDS: LACTOBACILLUS RHAMNOSUS GG 1 EACH CAP PO SCH (09:38)
[2016-08-28] MEDS: ASPIRIN 81 MG TAB.CHEW PO SCH (09:39)
[2016-08-28] MEDS: FUROSEMIDE 40 MG/4 ML VIAL IVP SCH (09:39)
[2016-08-28] MEDS: METOPROLOL SUCCINATE 50 MG TABER PO SCH (09:39)
[2016-08-28] MEDS: LISINOPRIL 10 MG TAB PO SCH (09:39)
--- NOTE | 2016-08-28 09:57 | NUR ---
CM NOTE CONCURRENT REVIEW SENT TO [facility] FAX# [phone] PH# [phone] AND TO [facility] FAX# [phone] PH# CATALINA DOOLEY [phone]
--- NOTE | 2016-08-28 10:42 | NUR ---
DAUGHTER CALLED GIVEN REPORT OF PT CONDITION
--- NOTE | 2016-08-28 12:00 | NUR ---
ADALBERTO FROM HOSPICE EVALUATED TE T. GIVEN ENDORSEMENT. HOSPICE TO ARRANGE DISCHARGE
--- NOTE | 2016-08-28 12:02 | NUR ---
SS NOTE: [facility] MUS[facility]IAN OF NURSES, ADALBERTO WAS BEDSIDE EVALUATING PT. HE STATED THAT THEY ARE ABLE TO ACCEPT PT ON THEIR SERVICES TODAY BUT HE IS WAITING FOR PT'S DTRKHANH TO CALL BACK TO CONFIRM THAT SHE WILL BE HOME TO RECEIVE PT. I LEFT A MESSAGE FOR PT'S DTRKHANH REGARDING THE ABOVE INFORMATION.
--- NOTE | 2016-08-28 14:58 | NUR ---
SS NOTE: I RECEIVED A CALL FROM PT'S DTR, KHANH. SHE STATED THAT SHE ALREADY SPOKE WITH [facility] AND SHE WILL BE HOME BY 1929 TO RECEIVE PT. I SPOKE WITH ADALBERTO FROM [facility] AND HE STATED THAT [facility] WILL BE COMING TO [facility] AT 0.
[2016-08-28] MEDS ORDERED: FURO-570 PO (15:29)
[2016-08-28] MEDS ORDERED: ACET-9525 PO (15:29)
[2016-08-28] MEDS ORDERED: BLOO1STR10 FS (15:29)
[2016-08-28] MEDS ORDERED: ATOR20TA40 PO (15:29)
[2016-08-28] MEDS ORDERED: PUL.25N INH (15:29)
[2016-08-28] MEDS ORDERED: HUMSLIDE SUBQ (15:29)
[2016-08-28] MEDS ORDERED: ONDA4ODT1 PO (15:29)
[2016-08-28] MEDS ORDERED: ASPI81CT27 PO (15:29)
[2016-08-28] MEDS ORDERED: ACET-1182 PO (15:29)
[2016-08-28] MEDS ORDERED: METO50TE2 PO (15:29)
[2016-08-28] MEDS ORDERED: LISI10TA11 PO (15:29)
[2016-08-28] MEDS ORDERED: IPRA3AMP IH ×2 (15:29)
[2016-08-28 15:49] VITALS: BP 121/78
[2016-08-28 16:00] VITALS: BP 128/77
--- NOTE | 2016-08-28 16:00 | NUR ---
PATIENT SIGNED CONSENTS. PT TO BE DC VIA [facility] AT 1930 DAUGHTER TO BE THERE. MD ORDERED DC TODAY HOSPICE MD TO FOLLOW CARE. OXIMIZER TO BE SENT TO THE HOSPICE FOR CONT OF CARE
--- NOTE | 2016-08-28 17:49 | NUR ---
ASSISTED PATIENT TO EAT. ADMISNISTERED INSULIN VIA SUB1 PT IS AWAKE AND ANSWERS QUESTIONS
--- NOTE | 2016-08-28 18:07 | NUR ---
SIGNED POLST IN THE PT HOSPICE BINDER. LEFT WITH CHARGE NURSE TOGETHER WITH DISHCARGE DOCUMENTATION
--- NOTE | 2016-08-28 18:59 | NUR ---
REMOVED IV PATENT. APPLIED PRESSURE. PT ON OXYMIZER. DAUGHTER CALLED. REPORTED PT TO BE PICKED UP AT [address] HOME.
--- NOTE | 2016-08-28 19:34 | NUR ---
ENDORSED TO NOC SHIFT MS LORIE. FOR CONT OF CARE. ALL MEDS GIVEN WITH NO ADVERSE REACTION. FALL PRECAUTION IMPLEMENTED. SKIN INTACT
--- NOTE | 2016-08-28 19:35 | NUR ---
RECD. SITTING ON BED, AWAKE, A/OX3. RESPIRATION EVEN AND UNLABORED. ON 02 OXYMIZER AT 6 LITERS, 02 SAT - 96%. AWARE OF DISCHARGE TONIGHT. VS STABLE. JUST WAITING FOR [facility] TO PICK HER UP. BELONGINGS ALREADY PACKED READY FOR HOME. DENIES PAIN 0/10.
--- NOTE | 2016-08-28 19:45 | NUR ---
REPORT GIVEN TO [facility] PERSONNEL.
--- NOTE | 2016-08-28 20:10 | NUR ---
TAKEN TO ER MYLENE MOONEY IN STABLE CONDITION VIA GURNEY FOR DISCHARGE TO HOME WITH HOSPICE CARE ACCOMPANIED BY [facility] PERSONNEL
== END 2016-08-28 20:10 | disposition hospice, home (50) | DRG 291 ==
LOC: MED 21:58 → MTU 23:58
PROVIDERS: ADMIT Student in an Organized Health Care Education/Training Program; ATTEND Student in an Organized Health Care Education/Training Program
PROC: 5A09457 Assistance with Respiratory Ventilation, 24-96 Consecutive Hours, Continuous Positive Airway Pressure (ICD-10-PCS; principal; 2016-08-23)
DX: I11.0 Hypertensive heart disease with heart failure (principal); N17.0 Acute kidney failure with tubular necrosis; J96.21 Acute and chronic respiratory failure with hypoxia; J96.22 Acute and chronic respiratory failure with hypercapnia; J69.0 Pneumonitis due to inhalation of food and vomit; E87.1 Hypo-osmolality and hyponatremia; D68.59 Other primary thrombophilia; J44.1 Chronic obstructive pulmonary disease with (acute) exacerbation; E44.0 Moderate protein-calorie malnutrition; I50.43 Acute on chronic combined systolic (congestive) and diastolic (congestive) heart failure; Z66 Do not resuscitate; E11.65 Type 2 diabetes mellitus with hyperglycemia; E66.01 Morbid (severe) obesity due to excess calories; I87.2 Venous insufficiency (chronic) (peripheral); R32 Unspecified urinary incontinence; F17.210 Nicotine dependence, cigarettes, uncomplicated; E83.42 Hypomagnesemia; E11.51 Type 2 diabetes mellitus with diabetic peripheral angiopathy without gangrene; Z51.5 Encounter for palliative care; I87.8 Other specified disorders of veins; Z68.32 Body mass index [BMI] 32.0-32.9, adult
CPT/HCPCS: 36415; 36600; 71010; 80048; 80053; 80305; 81001; 82803; 82948; 83036; 83605; 83735; 83880; 84100; 84436; 84439; 84443; 84479; 84484; 85025; 85379; 85610; 85730; 87040; 87081; 87086; 93005; 93925; 93970; 94640; 94660; 96361; 96374; 96375; 99285; C1758; J0360; J1815; J1940; J1956; J2270; J2920; J2930; J3490; J7030; J7060; J7620; J7626; Q0092

== ENCOUNTER 2023-06-10 21:21 | Inpatient (IN) | payer OTHER ==
[~2023-06-10] VITALS: Ht 162.6 cm; Wt 91.6 kg
[2023-06-10 20:00] VITALS: RESP 18; O2SAT 98
[~2023-06-10 21:21] MED LIST: ACET-1182 PO; ACET-9525 PO; ALBU3SOL83 IH; ASPI81CT95 PO; ATOR20TA40 PO; BLOO1STR56 FS; FURO-570 PO; HUMSLIDE SUBQ; LISI10TA30 PO; METO50TE2 PO; ONDA-188 PO; PUL.25N INH
[2023-06-10 22:00] VITALS: BP 137/84; PULSE 75; RESP 18; TEMP 96.8; O2SAT 98
[2023-06-10] MEDS ORDERED: ALBUTEROL 0.083% 2.5 MG/3 ML NEBU INH PRN (22:10)
[2023-06-10] MEDS ORDERED: ONDANSETRON 4 MG/2 ML VIAL IVP PRN (22:10)
[2023-06-10] MEDS ORDERED: DEXTROSE 50% 50 ML SYR IVP PRN (22:10)
[2023-06-11] VITALS (12 sets, daily range): BP systolic 97–143; BP diastolic 48–80; PULSE 68–98; RESP 16–28; TEMP 96.6–98.1; O2SAT 95–100
[2023-06-11] MEDS: TEMAZEPAM 15 MG CAP PO PRN (01:11)
[2023-06-11] MEDS: NACL 0.9% 1,000 ML IV SCH (01:11)
[2023-06-11] MEDS: IPRATROPIUM 0.02% 0.5 MG/2.5 ML NEBU INH SCH (01:12)
[2023-06-11] MEDS: BLOOD GLUCOSE MONITORING 1 DEV DEV FS SCH (06:39)
[2023-06-11 06:57] LABS: BASOPHILS # (AUTO) 0.1 K/uL (0.00-0.22); BASOPHILS % (AUTO) 1.1 % (0.0-2.0); EOSINOPHILS # (AUTO) 0.4 K/uL (0-0.4); EOSINOPHILS % (AUTO) 8.2 % (0.0-4.0); HEMATOCRIT 23.7 % (36-48); HEMOGLOBIN 8.1 g/dL (12.0-16.0); LYMPHOCYTES # (AUTO) 2.9 K/uL (2.5-16.5); LYMPHOCYTES % (AUTO) 58.6 % (20.5-51.1); MEAN CORPUSCULAR HEMOGLOBIN 29 pg (27-31); MEAN CORPUSCULAR HGB CONC 34 g/dL (33-37); MEAN CORPUSCULAR VOLUME 85.3 fL (80-94); MONOCYTES # (AUTO) 0.3 K/uL (0.8-1.0); MONOCYTES % (AUTO) 6.5 % (1.7-9.3); NEUTROPHILS # (AUTO) 1.3 K/uL (1.8-7.7); NEUTROPHILS % (AUTO) 25.6 % (42.2-75.2); PLATELET COUNT (AUTO) 325 K/uL (140-450); RED BLOOD CELL COUNT(AUTO) 2.78 MIL/uL (4.20-5.40); RED CELL DISTRIBUTION WIDTH 14.9 % (11.6-13.7)
[2023-06-11 07:36] LABS: ANION GAP 8.8 (8-16); CALCIUM 8.6 mg/dL (8.5-10.1); CARBON DIOXIDE 31.3 mmol/L (21-32); CREATININE 1.5 mg/dL (0.6-1.3); MAGNESIUM 1.9 mg/dL (1.8-2.4); POTASSIUM 4.1 mmol/L (3.5-5.1); TOTAL PROTEIN, SERUM 6.6 g/dL (6.4-8.2)
[2023-06-11] MEDS ORDERED: ACETAMINOPHEN 325 MG TAB PO PRN (08:00)
[2023-06-11] MEDS: METOPROLOL SUCCINATE 50 MG TABER PO SCH (08:11)
[2023-06-11] MEDS: ECOTRIN 81 MG TABEC PO SCH (08:11)
[2023-06-11] MEDS: ATORVASTATIN 20 MG TAB PO SCH (08:13)
[2023-06-11] MEDS: HYDROcodone/APAP 5/325 MG 1 TAB TAB PO PRN (08:55)
[2023-06-11] MEDS: HYDRAGUARD CREAM TP SCH (13:00)
[2023-06-12] VITALS (11 sets, daily range): BP systolic 118–162; BP diastolic 50–79; PULSE 68–97; RESP 18–20; TEMP 96.8–99; O2SAT 95–100
[2023-06-12] MEDS: INSULIN LISPRO SLIDING SCALE 100 UNITS/ML VIAL SUBQ PRN (21:13)
[2023-06-13 04:00] VITALS: BP 147/49; PULSE 66; RESP 19; TEMP 97.4; O2SAT 97
[2023-06-13 07:32] VITALS: PULSE 63; RESP 20; O2SAT 98
[2023-06-13] MEDS ORDERED: ACETAMINOPHEN 325 MG TAB PO PRN (07:35)
[2023-06-13] MEDS ORDERED: INSULIN LISPRO SLIDING SCALE 100 UNITS/ML VIAL SUBQ PRN (07:35)
[2023-06-13] MEDS ORDERED: ALBUTEROL SULFATE/IPRATROPIU 3 ML SOL IH PRN (07:35)
[2023-06-13] MEDS ORDERED: HYDROcodone/APAP 5/325 MG 1 TAB TAB PO PRN (07:35)
[2023-06-13] MEDS ORDERED: ONDANSETRON 4 MG ODT PO PRN (07:35)
[2023-06-13 08:00] VITALS: BP 121/61; PULSE 79; RESP 18; TEMP 98.3; O2SAT 93
[2023-06-13 09:54] LABS: BASOPHILS % (AUTO) 1.1 % (0.0-2.0); EOSINOPHILS # (AUTO) 0.4 K/uL (0-0.4); EOSINOPHILS % (AUTO) 8.1 % (0.0-4.0); HEMATOCRIT 24.1 % (36-48); LYMPHOCYTES # (AUTO) 2.5 K/uL (2.5-16.5); LYMPHOCYTES % (AUTO) 53.7 % (20.5-51.1); MEAN CORPUSCULAR HEMOGLOBIN 29 pg (27-31); MEAN CORPUSCULAR HGB CONC 33 g/dL (33-37); MEAN CORPUSCULAR VOLUME 85.9 fL (80-94); MONOCYTES # (AUTO) 0.3 K/uL (0.8-1.0); MONOCYTES % (AUTO) 5.6 % (1.7-9.3); NEUTROPHILS # (AUTO) 1.5 K/uL (1.8-7.7); NEUTROPHILS % (AUTO) 31.5 % (42.2-75.2); PLATELET COUNT (AUTO) 312 K/uL (140-450); RED BLOOD CELL COUNT(AUTO) 2.81 MIL/uL (4.20-5.40); RED CELL DISTRIBUTION WIDTH 14.8 % (11.6-13.7); WHITE BLOOD COUNT (AUTO) 4.6 K/uL (4.8-10.8)
[2023-06-13 10:21] LABS: ANION GAP 6.1 (8-16); CALCIUM 8.8 mg/dL (8.5-10.1); CARBON DIOXIDE 31.1 mmol/L (21-32); CREATININE 1.2 mg/dL (0.6-1.3); POTASSIUM 4.2 mmol/L (3.5-5.1); TOTAL PROTEIN, SERUM 6.6 g/dL (6.4-8.2)
[2023-06-13] MEDS: ATORVASTATIN 20 MG TAB PO SCH (10:34)
[2023-06-13] MEDS: ASPIRIN 81 MG TAB.CHEW PO SCH (10:35)
[2023-06-13] MEDS: lisinopriL 10 MG TAB PO SCH (10:35)
[2023-06-13] MEDS: METOPROLOL SUCCINATE 50 MG TABER PO SCH (10:36)
[2023-06-13] MEDS: FUROSEMIDE 40 MG TAB PO SCH (10:36)
[2023-06-13] MEDS: ALBUTEROL SULFATE/IPRATROPIU 3 ML SOL IH SCH (11:00)
[2023-06-13] MEDS: BLOOD GLUCOSE MONITORING 1 DEV DEV FS SCH (11:30)
[2023-06-13] MEDS: IPRATROPIUM 0.02% 0.5 MG/2.5 ML NEBU INH SCH (13:00)
[2023-06-13 15:07] VITALS: BP 121/61; PULSE 79; RESP 18; TEMP 98.3
[2023-06-13] MEDS ORDERED: ALBUTEROL SULFATE/IPRATROPIU 3 ML SOL IH SCH (19:00)
[2023-06-13] MEDS ORDERED: BUDESONIDE 0.25 MG/2 ML NEBU INH SCH (19:30)
== END 2023-06-13 18:20 | DRG 682 ==
LOC: MTU 21:21
PROVIDERS: ADMIT Hospitalist; ATTEND Hospitalist
DX: N17.9 Acute kidney failure, unspecified (principal); R65.11 Systemic inflammatory response syndrome (SIRS) of non-infectious origin with acute organ dysfunction; E11.9 Type 2 diabetes mellitus without complications; I10 Essential (primary) hypertension; E78.5 Hyperlipidemia, unspecified
CPT/HCPCS: 36415; 80053; 82948; 83735; 85025; 87081; 94640; J1644; J1815; J7644